=== PATIENT | male | born 1980 | race Caucasian/White ===

== ENCOUNTER → 2019-10-27 | Outpatient (CLI) | payer OTHER ==
[~2019-10-27] MED LIST: METHACHOLINE KIT (J7674) INH ONE
--- NOTE | 2019-10-27 10:10 | PFTRPT ---
Site: [facility], [address] [place] [address], [address] ID: [id number] Name: NERI RIVERA Visit Date: 10/27/2019 Second ID: [id number] Referring Doctor: Mode Benoit DO Reviewing Doctor: Jeremiah Valdez MD Business Services Intern: Susie RUFFIN RRT Age: 39 : 1980 Sex: Male Race: Height: 73.00 Inches Weight: 230.00 Lbs BSA: 2.28 Order IDs: [id number] Requested Test(s): <RESP-PFT.DLCO> Diagnosis: Z57.39 test meet the ATS standards for acceptability and repeatability. Review Status: Not Reviewed Pre-Bronch Post-Bronch Pred Actual %Pred Actual %Chng SPIROMETRY FVC (L) 5.81 5.64 97 FEV1 (L) 4.60 4.37 94 FEV1/FVC (%) 80 77 96 FEF 25% (L/sec) 8.71 7.86 90 FEF 50% (L/sec) 5.48 5.09 92 FEF 75% (L/sec) 2.05 1.47 71 FEF 25-75% (L/sec) 4.26 3.83 89 FEF Max (L/sec) 10.86 8.52 78 FIVC (L) 5.59 FIF 50% (L/sec) 5.24 7.36 140 FIF Max (L/sec) 7.45 MVV (L/min) 176 146 83 Expiratory Time (sec) 7.58 Back Extrap Vol (L) 0.12 Time To FEFmax (sec) 0.085 LUNG VOLUMES SVC (L) 5.55 5.45 98 IC (L) 3.72 4.10 110 ERV (L) 1.83 1.34 73 TGV (L) 3.82 3.30 86 RV (Pleth) (L) 1.99 1.96 98 TLC (Pleth) (L) 7.54 7.40 98 RV/TLC (Pleth) (%) 26 26 101 DIFFUSION DLCOunc (ml/min/mmHg) 34.26 28.66 83 DLCOcor (ml/min/mmHg) 34.26 28.42 82 DL/VA (ml/min/mmHg/L) 4.54 3.92 86 VA (L) 7.54 7.26 96 BHT (sec) 9.57 IVC (L) 5.12 TLC (SB) (L) 7.41 AIRWAYS RESISTANCE Raw (cmH2O/L/s) 1.45 0.94 65 Gaw (L/s/cmH2O) 1.03 1.07 103 sRaw (cmH2O*s) 4.76 3.33 70 sGaw (1/cmH2O*s) 0.20 0.30 150 BLOOD GASES Hgb (gm/dL) 14.9
--- NOTE | 2019-10-27 10:48 | PFTRPT ---
Site: [facility], [address] [place], [address] ID: [id number] Name: NERI RIVERA Visit Date: 10/27/2019 Second ID: [id number] Referring Doctor: Mode Benoit DO Reviewing Doctor: Jeremiah Valdez MD Corrections Unit Supervisor: Susie RUFFIN, AIXA Age: 39 : 1980 Sex: Male Race: Height: 73.00 Inches Weight: 230.00 Lbs BSA: 2.28 Order IDs: [id number] Requested Test(s): <RESP-PFT.METH CHAL> Diagnosis: Z57.39 puffs of albuterol for post bronchodilator. Review Status: Not Reviewed Pre-Bronch Post-Bronch Pred Actual %Pred Actual %Chng SPIROMETRY FVC (L) 5.81 5.57 95 5.45 -2 FEV1 (L) 4.60 4.26 92 4.26 FEV1/FVC (%) 80 76 95 78 2 FEF 25% (L/sec) 8.71 8.35 95 7.48 -10 FEF 50% (L/sec) 5.48 4.28 78 4.67 9 FEF 75% (L/sec) 2.05 1.43 69 1.44 FEF 25-75% (L/sec) 4.26 3.54 83 3.62 2 FEF Max (L/sec) 10.86 9.25 85 8.19 -11 FIVC (L) 5.21 5.33 2 FIF 50% (L/sec) 5.24 9.48 180 9.02 -4 FIF Max (L/sec) 9.61 9.42 -1 Expiratory Time (sec) 6.52 6.51 Back Extrap Vol (L) 0.13 0.14 9 Time To FEFmax (sec) 0.089 0.091 1
== END ==
LOC: M CARPUL 09:27
PROVIDERS: ATTEND Internal Medicine Pulmonary Disease
DX: R05 Cough (principal); Z57.39 Occupational exposure to other air contaminants

== ENCOUNTER → 2022-08-21 | Outpatient (CLI) | payer OTHER | LOC: M SOG 08:22 | PROVIDERS: ATTEND Orthopaedic Surgery Hand Surgery | DX: M79.641 Pain in right hand (principal); R93.6 Abnormal findings on diagnostic imaging of limbs ==

== ENCOUNTER → 2022-09-08 | Outpatient (CLI) | payer BC, OTHER ==
[~2022-09-08] MED LIST changes: +IBUP200C25 PO; -METHACHOLINE KIT (J7674) INH ONE
== END ==
LOC: M LABSMTC 10:46
PROVIDERS: ATTEND Anesthesiology
DX: Z01.818 Encounter for other preprocedural examination (principal); Z11.52 Encounter for screening for COVID-19

== ENCOUNTER 2022-09-10 06:51 | Day surgery (SDC) | payer BC ==
[~2022-09-10] VITALS: Ht 185.4 cm; Wt 108.9 kg
[2022-09-10] MEDS ORDERED: fentaNYL 100 MCG/2 ML INJECTION As Ordered ONE (07:22)
[2022-09-10] MEDS ORDERED: MIDAZOLAM INJ 2MG/2ML VIAL (J2250 PER 1MG) As Ordered ONE (07:22)
[2022-09-10] MEDS ORDERED: propofoL 200 MG/20 ML VIAL As Ordered ONE (07:22)
[2022-09-10] MEDS ORDERED: LIDOCAINE 2% INJ 100 MG/5 ML SYRINGE As Ordered ONE (07:22)
[2022-09-10] MEDS ORDERED: ONDANSETRON 4MG 2ML VIAL As Ordered ONE (07:22)
[2022-09-10] MEDS ORDERED: LR 1,000 ML IV SCH ×2 (07:30→10:40)
[2022-09-10] MEDS ORDERED: LIDOCAINE 5% OINT 30GM TUBE As Ordered ONE (08:45)
[2022-09-10] MEDS ORDERED: BACITRACIN OINTMENT 30GM TUBE As Ordered ONE (08:46)
[2022-09-10] MEDS ORDERED: BUPIVACAINE HCL 0.25% 30ML VIAL As Ordered ONE (08:46)
[2022-09-10] MEDS ORDERED: CLINDAMYCIN 900 MG in IV 1 EA IV ONE (09:05)
[2022-09-10] MEDS ORDERED: CLINDAMYCIN 900MG/50ML PREMIX BAG As Ordered ONE (09:07)
[2022-09-10] MEDS ORDERED: ePHEDrine SULFATE 25 MG/5 ML(5MG/ML) SYRINGE As Ordered ONE (09:26)
[2022-09-10] MEDS ORDERED: METOCLOPRAMIDE INJ 10MG/2ML VIAL As Ordered ONE (09:37)
[2022-09-10] MEDS ORDERED: ACETAMINOPHEN 1000MG 100ML IV BAG As Ordered ONE (09:37)
[2022-09-10] MEDS ORDERED: KETOROLAC 60MG 2ML VIAL As Ordered ONE (09:37)
[2022-09-10] MEDS ORDERED: METOCLOPRAMIDE INJ 10MG/2ML VIAL IV PRN (10:40)
[2022-09-10] MEDS ORDERED: ONDANSETRON 4MG 2ML VIAL IV PRN (10:40)
[2022-09-10] MEDS: fentaNYL 100 MCG/2 ML INJECTION IV PRN ×4 (11:16→11:45)
[2022-09-10] MEDS: oxyCODONE 5MG TAB PO PRN ×2 (11:17→11:46)
[2022-09-10] MEDS ORDERED: PERC5TAB12 PO (11:20)
[2022-09-10 12:10] VITALS: BP 125/72
== END 2022-09-10 12:30 | disposition home or self-care (01) ==
LOC: M SDC 06:51
PROVIDERS: ATTEND Orthopaedic Surgery Hand Surgery
DX: M72.0 Palmar fascial fibromatosis [Dupuytren] (principal)
CPT/HCPCS: 26123; 26125; 88304; J0131; J1885; J2250; J2405; J2765; J3010